=== PATIENT | male | born 1965 | race African-American/Black ===

== ENCOUNTER 2023-06-26 02:27 | Emergency (ER) | payer OTHER ==
[2023-06-26 03:00] LABS: #Basophils 0.1 thou/uL (0.0-0.2); #Eosinphils 0.2 thou/uL (0.0-0.7); #Lymphocytes 1.1 thou/uL (1.20-3.40); #Monocytes 0.6 thou/uL (0.11-0.59); #Neutrophils 2.8 thou/uL (1.40-6.50); %Basophils 2.3 % (0.0-1.0); %Eosinophils 4.2 % (0.0-10.0); %Lymphocytes 23.1 % (21.0-51.0); %Monocytes 12.2 % (0.0-10.0); %Neutrophils 58.2 % (42.0-75.0); Hematocrit 37.3 % (42.0-52.0); Hemoglobin 11.3 g/dL (14.0-18.0); Mean Corpuscular HGB CONC 30.2 g/dL (32.0-36.0); Mean Corpuscular Volume 79.3 fl (78.0-98.0); Mean Platelet Volume 7.6 fL (7.4-10.4); Platelet Count 243 10x3/uL (130-400); RBC Distribution Width 15.4 % (11.5-14.5); White Blood Cell (WBC) Count 4.8 10x3/uL (4.8-10.8)
[2023-06-26] MEDS ORDERED: Nitroglycerin 2% Ointment 1 INCH/1 GM Packet ONE (03:13)
[2023-06-26] MEDS ORDERED: Morphine 4 MG/ML VIAL ONE (03:13)
[2023-06-26] MEDS ORDERED: Ondansetron PF 4 MG/2 ML Vial ONE (03:13)
[2023-06-26 03:19] LABS: Troponin I 0.013 ng/mL (< 0.028)
[2023-06-26 03:20] LABS: ALT (SGPT) 26 U/L (8-55); AST (SGOT) 12 U/L (5-34); Albumin 4.4 g/dL (3.5-5.0); Alkaline Phosphatase 109 U/L (40-110); Anion Gap 16 mmol/L (10-20); BUN (Urea Nitrogen) 37 mg/dL (8.4-25.7); Bilirubin, Total 0.5 mg/dL (0.2-1.2); Calc. Creatinine Clearance 0 mL/min (70-130); Calcium 9.4 mg/dL (7.8-10.44); Carbon Dioxide 24 mmol/L (22-29); Chloride 103 mmol/L (98-107); Estimated GFR 47; Globulin 3.3 g/dL (2.4-3.5); Glucose 139 mg/dL (70-105); Potassium 5.5 mmol/L (3.5-5.1); Protein, Total 7.7 g/dL (6.0-8.3); Sodium 137 mmol/L (136-145)
[2023-06-26] MEDS ORDERED: Morphine 2 MG/ML VIAL ONE (05:23)
[2023-06-26 07:06] LABS: Troponin I 0.016 ng/mL (< 0.028)
[2023-06-26] MEDS ORDERED: Sodium Chloride 0.9% 1,000 ML ONE (08:33)
[2023-06-26] MEDS ORDERED: Insulin Regular 300 UNITS/3 ML VIAL ONE (08:33)
[2023-06-26] MEDS ORDERED: Pantoprazole 40 MG VIAL ONE (08:33)
[2023-06-26] MEDS ORDERED: Carvedilol 25 MG TAB ONE (08:34)
[2023-06-26] MEDS ORDERED: Insulin NPH Human Isophane 100 UNITS/ML (10 ML VIAL) SC SCH (08:42)
[2023-06-26 10:17] LABS: Troponin I 0.017 ng/mL (< 0.028)
[2023-06-26 13:36] LABS: Troponin I Less than 0.010 ng/mL (< 0.028)
== END 2023-06-26 13:38 | disposition short-term general hospital (02) ==
LOC: NAV ERS 02:27 → EEVIPCON 02:27 → NAV ERS 13:38
DX: R07.9 Chest pain, unspecified (principal); I25.10 Atherosclerotic heart disease of native coronary artery without angina pectoris; I25.2 Old myocardial infarction; K21.9 Gastro-esophageal reflux disease without esophagitis; Z79.899 Other long term (current) drug therapy; Z86.718 Personal history of other venous thrombosis and embolism; Z79.82 Long term (current) use of aspirin; Z79.01 Long term (current) use of anticoagulants
CPT/HCPCS: 36415; 36416; 71045; 80053; 84484; 85025; 85379; 93005; 94760; 96374; 96375; 96376; C9113; J1815; J2270; J2272; J2405; J7050

== ENCOUNTER 2024-02-28 04:07 | Emergency (ER) | payer OTHER ==
[2024-02-28] MEDS ORDERED: Sodium Chloride 0.9% 1,000 ML ONE (05:05)
[2024-02-28] MEDS ORDERED: Ondansetron PF 4 MG/2 ML Vial ONE ×2 (05:05→13:29)
[2024-02-28] MEDS ORDERED: Morphine 4 MG/ML VIAL ONE (05:05)
[2024-02-28 05:07] LABS: #Basophils 0.1 thou/uL (0.0-0.2); #Eosinophils 0.3 thou/uL (0.0-0.7); #Monocytes 0.6 thou/uL (0.11-0.59); #Neutrophils 3.2 thou/uL (1.40-6.50); %Basophils 1.4 % (0.0-1.0); %Eosinophils 5.6 % (0.0-10.0); %Lymphocytes 19.7 % (21.0-51.0); %Monocytes 10.9 % (0.0-10.0); %Neutrophils 62.5 % (42.0-75.0); Hematocrit 48.9 % (42.0-52.0); Hemoglobin 15.8 g/dL (14.0-18.0); Mean Corpuscular HGB CONC 32.4 g/dL (32.0-36.0); Mean Corpuscular Hemoglobin 27.3 pg (27.0-31.0); Mean Corpuscular Volume 84.3 fl (78.0-98.0); Mean Platelet Volume 8.1 fL (7.4-10.4); Platelet Count 217 10x3/uL (130-400); RBC Distribution Width 11.1 % (11.5-14.5); White Blood Cell (WBC) Count 5.2 10x3/uL (4.8-10.8)
[2024-02-28 05:15] LABS: Prothrombin Time 13.1 sec (12.0-14.7)
[2024-02-28 05:16] LABS: PTT 26.8 sec (22.9-36.1)
[2024-02-28 05:21] LABS: ALT (SGPT) 32 U/L (8-55); AST (SGOT) 18 U/L (5-34); Alkaline Phosphatase 107 U/L (40-110); Anion Gap 17 mmol/L (10-20); BUN (Urea Nitrogen) 27 mg/dL (8.4-25.7); Bilirubin, Total 0.8 mg/dL (0.2-1.2); Calc. Creatinine Clearance 0 mL/min (70-130); Carbon Dioxide 29 mmol/L (22-29); Chloride 96 mmol/L (98-107); Estimated GFR 46; Glucose 109 mg/dL (70-105); Potassium 4.1 mmol/L (3.5-5.1); Protein, Total 8.7 g/dL (6.0-8.3); Sodium 138 mmol/L (136-145)
[2024-02-28 05:22] LABS: Troponin I Less than 0.010 ng/mL (< 0.028)
[2024-02-28 05:40] LABS: Albumin 4.4 g/dL (3.5-5.0)
[2024-02-28 11:30] LABS: Troponin I 0.016 ng/mL (< 0.028)
[2024-02-28] MEDS ORDERED: Morphine 2 MG/ML VIAL ONE (12:33)
[2024-02-28] MEDS ORDERED: Nitroglycerin 2% Ointment 1 INCH/1 GM Packet ONE (12:34)
[2024-02-28] MEDS ORDERED: Ketorolac Tromethamine 30 MG (1 mL) VIAL ONE (17:56)
[2024-02-28 18:28] LABS: Troponin I Less than 0.010 ng/mL (< 0.028)
[2024-02-28] MEDS ORDERED: Insulin NPH Human Isophane 100 UNITS/ML (10 ML VIAL) SC SCH (20:00)
[2024-02-28] MEDS ORDERED: Insulin Regular, Human 100 UNIT/ML 10 ML VIAL ONE (20:54)
[2024-02-28] MEDS ORDERED: Atorvastatin Calcium 40 MG TAB PO SCH (21:00)
== END 2024-02-28 21:32 | disposition short-term general hospital (02) ==
LOC: NAV ERS 04:07 → EEVIPCON 04:07 → NAV ERS 21:32
DX: R07.9 Chest pain, unspecified (principal); E11.22 Type 2 diabetes mellitus with diabetic chronic kidney disease; N18.9 Chronic kidney disease, unspecified; I12.9 Hypertensive chronic kidney disease with stage 1 through stage 4 chronic kidney disease, or unspecified chronic kidney disease; K21.9 Gastro-esophageal reflux disease without esophagitis; E78.5 Hyperlipidemia, unspecified; Z79.4 Long term (current) use of insulin; Z79.899 Other long term (current) drug therapy
CPT/HCPCS: 36415; 36416; 71045; 80053; 83880; 84484; 85025; 85379; 85610; 85730; 93005; 96361; 96374; 96375; 96376; J1815; J1885; J2272; J2405; J7030